=== PATIENT | male | born 1945 | race Caucasian/White ===

== ENCOUNTER 2019-05-23 06:18 | Inpatient (IN) | payer OTHER, BC ==
[~2019-05-23] VITALS: Ht 185.4 cm; Wt 133.8 kg
[2019-05-23] VITALS (19 sets, daily range): BP systolic 74–128; BP diastolic 41–84
--- NOTE | ~2019-05-23 | EEG ---
[facility] Kathy Guzman [employer] [place] [address] ELECTROENCEPHALOGRAM Name: CORRINA LIM Humera Room #: 204-P [facility] IN M.R.#: [id number] Admission: 05/23/19 Attend Phys: Junito Shirley MD Discharge: Date of : 43 Report #: [id number] THIS REPORT FOR: //name// CC: Junito Ritter DATE OF SERVICE: 05/28/2019 This patient is being evaluated for altered mental status. EEG was done by placing the electrode by standard 10-20 system of electrode placement. Both referential and sequential montages were used for recording. Background activity in this patient's EEG is about 8-9 Hz and 30 microvolts. Photic stimulation is unremarkable. It is intermixed with some theta range slowing. The patient went to sleep and that was associated with bilateral slowing and vertex sharp waves. Throughout the record, no active epileptiform activity was noticed. IMPRESSION: Except for some intermixed theta range slowing on both sides, this patient's EEG was unremarkable. Thank you very much for this referral. By: 1713 1730 Collin Cordoba MD /nt
--- NOTE | ~2019-05-23 | EEG ---
[facility] [place] [address] ELECTROENCEPHALOGRAM Name: CORRINA LIM Humera Room #: 238-P [facility] IN M.R.#: [id number] Admission: 05/23/19 Attend Phys: Pipo Buckley MD Discharge: Date of : 43 Report #: [id number] THIS REPORT FOR: //name// CC: Pipo Ritter DATE OF SERVICE: 05/23/2019 This patient is being evaluated for altered mental status. EEG was done by placing the electrode by standard 10-20 system of electrode placement. Both differential and sequential montages were used for recording. Background activity in this patient's EEG is about 8-9 Hz and 30 microvolt. Photic stimulation is unremarkable. The patient became drowsy and that is associated with bilateral slowing and vertex sharp waves. IMPRESSION: This patient's EEG is intermixed with some theta range slowing on both sides. That is a nonspecific finding, which can occur with encephalopathy, effect of psychotropic medication, dementia, etc. Clinical correlation is recommended. By: 1814 1841 Collin Cordoba MD /nt
[~2019-05-23 06:18] MED LIST: ALEVE220 MG PO; CARDIZEM CD240 MG PO; CELEXA 10 MG TA10 MG PO; CYCLOBENZAPRINE10 MG PO; ELIQUIS5 MG PO; ENOXAPARIN120 MG/0.1 SUBQ; GINKGO BILOBA30 MG PO; HYDROCODON-ACE1 EAC7 PO; HYDROCODONE-AP1 EAC6 PO; IBUPROFEN 200200 M1 PO; LISINOPRIL-HCT1 EAC2 PO; NIACIN50 MG PO; NIFEDIPINE ER30 M1 PO; SAW PALMETTO160 MG PO; ZINC50 M1 PO
[2019-05-23 08:19] LABS: HEMATOCRIT 52.2 % (42.0-52.0); HEMOGLOBIN 17.6 gm/dL (14.0-18.0); MCH 33.1 pg (26.0-34.0); MCHC 33.8 g/dL (28.0-37.0); MCV 97.9 fL (80.0-100.0); RBC 5.33 mil/uL (4.50-6.00); RDW 13.6 % (10.5-14.5); WBC 13.8 thou/uL (4.0-11.0)
--- NOTE | 2019-05-23 08:28 | EKG ---
[place] [address] [facility] [address] [place] [address] ELECTROCARDIOGRAM REPORT Name: CORRINA LIM Room #: 160-12 ADM IN M.R.#: [id number] Admission: 05/23/19 Attend Phys: Pipo Buckley MD Discharge: Date of : 43 Report #: [id number] THIS REPORT FOR: //name// [facility] Test Date: 2019-05-23 Test Time: 08:08:15 Pat Name: CORRINA LIM Department: Room: 160 12 Gender: M Disc Pad Grinder: Karl ANDERSON : 1945 Requested By: Junito Shirley Order Number: [id number] MD: Sunday Adamson Measurements Intervals [place] Rate: 59 P: [place]: QRS: -20 QRSD: 99 T: 180 QT: 488 QTc: 484 Interpretive Statements Junctional rhythm Inferior infarct, possibly acute Poor R wave progression Compared to ECG 06/02/2016 13:58:19 Junctional rhythm now present Inferior ST segment abnormality is new Ventricular premature complex(es) no longer present Electronically Signed On 05-23-2019 8:28:28 CDT by Sunday Adamson [email or web address] <ELECTRONICALLY SIGNED> By: Sunday Adamson MD, [facility] 05/23/19 0828 7 Sunday Adamson MD, [facility] /EPI
[2019-05-23 08:42] LABS: ALBUMIN 3.5 g/dL (3.4-5.0); CALCIUM 8.7 mg/dL (8.5-10.1); CREATININE 1.7 mg/dL (0.7-1.3); POTASSIUM 3.9 mmol/L (3.5-5.1); TOTAL BILIRUBIN 3.1 mg/dL (<0.1-1.0); TOTAL PROTEIN 5.8 g/dL (6.4-8.2)
[2019-05-23 08:44] LABS: TROPONIN-I 7.42 ng/mL (<0.06)
[2019-05-23 09:25] LABS: CHOLESTEROL 90 mg/dL (<200); HDL CHOLESTEROL 29 mg/dL (>40); LDL CHOLESTEROL 38 mg/dL (<100); TC:HDL 3.1 Ratio (Not establshd); TRIGLYCERIDE 117 mg/dL (<150); VLDL 23 mg/dL (<40)
--- NOTE | 2019-05-23 11:24 | NUR ---
RN GAVE REPORT TO CCU RN. THIS RN WENT INTO ROOM TO READY PATIENT FOR TRANSPORT WHEN PT WAS SPEAKING BUT NOT MAKING SENSE. PT HAD PREVOIUSLY HAD MOMENTS OF CONFUSION BUT WAS ANSWERING SPECIFIC QUESTIONS APROPRIATELY MD WAS MADE AWARE. PT MOVING ALL EXTERMITIES, NO FACIAL DROOP NOTED. APSHIA NOTED ONLY. PT TAKE ON MONITOR TO CT WITH RN X 2.
--- NOTE | 2019-05-23 11:48 | NUR ---
PT RETURNED FROM CT, PLACED ON NONBREATHER D.T. PT COLOR. PT PREVIOUS SPO2 DID NOT DROP BELOW 95% ON 4L O2 VIA NC WITH A GOOD WAVEFORM. PT MENTAL STATUS HAS IMPROVED WITH ADDITIONAL O2. AAOX3 WITH INTERMITTENT CONFUSION. ICU BED ORDERED.
--- NOTE | 2019-05-23 21:43 | NUR ---
SHIFT SUMMARY: ADMITTED TO ICU #238 FROM [facility] PER CART WITH DX: STEMI WITH STENT TO RCA. PT TO ICU RELATED TO EXPRESSIVE APHASIA AND ON 100% NONREBREATHER. INITIALLY PT ABLE TO STATE SOME WORDS WITH PURPOSE, HOWEVER OTHERS WITH EXPRESSIVE APHASIA. NIHSS-1 FOR EXPRESSIVE APHASIA, DENIES PAIN. JUNCTIONAL HEART RHYTHM, R GROIN SITE DRY/INTACT, NO BLEEDING, BRUISING OR HEMATOMA WITH MYNX CLOSURE DEVICE, 2X2 GUAZE AND OPSITE INTACT. INFORMED PT TO KEEP RIGHT LEG STRAIGHT, NOT MOVE LEG AROUND AND TO GUARD FEMORAL SITE. PULSES 1+ AND DENISE FEET COOL TO TOUCH WHICH PT STATES IS HIS NORM. PT RED IN FACE, 100%NONREBREATHER, RESP LABORED WHEN LAYING DOWN OR WITH ACTIVITY. PT HAD POOR SAO2 PLETH WHICH RESOLVED WHEN PLACED ON HIS FOREHEAD. SA02 AT 100% FOR LENGTHY TIME, RESP EVEN AND UNLABORED, DECREASED 02 TO 6L/NC WITH PT INITIALLY TOLERATING FOR LONG PERIOD. THEN NOTED HR SLOWING INTERMITTENTLY INTO 40'S, THEN RETURNING TO UPPER 50'S, BECOMING SHORT OF AIR AND FACE WITH INCREASED REDNESS. OBTAINED EKG NOTING CONFIRMING PT IN AFIB. REPLACED ON 100% NONREBREATHER WITH HR CONSISTENTLY RETURNING INTO UPPER 50'S WITH STABLE VS. CAROTID ULTRASOUND COMPLETED WITH ERRONEOUSLY HIGH BP DURING THAT TIME. DR. CASTAÑEDA- NEUROLOGY PRESENT TO SEE PT. HE UPDATED RN THAT HE SPOKE WITH DR. SANTA AND ORDERS WILL BE PENDING. SON AND DAUGHTER PRESENT, UPDATED ON PT STATUS. REPORT GIVEN TO ONCOMING RN. RN CALLED DR. SANTA, UPDATED ON PT STATUS. RECEIVED ORDERS AND CONSULTS. PT NOT PROGRESSING.
[2019-05-23 23:19] LABS: BE(vivo) -7.3 mmol/L (-2 to +3); PO2 99.6 mmHg (80.0-100.0); pH 7.401 (7.360-7.450); sO2 97.7 % (92.0-98.0)
[2019-05-23 23:20] LABS: PCO2 24.7 mmHg (35.0-45.0)
[2019-05-23 23:49] LABS: CALCIUM 8.2 mg/dL (8.5-10.1)
[2019-05-23 23:53] LABS: CREATININE 2.8 mg/dL (0.7-1.3); POTASSIUM 5.7 mmol/L (3.5-5.1)
[2019-05-24] VITALS (21 sets, daily range): BP systolic 107–185; BP diastolic 51–119
[2019-05-24 06:04] LABS: HEMATOCRIT 50.9 % (42.0-52.0); HEMOGLOBIN 17.1 gm/dL (14.0-18.0); MCH 33.3 pg (26.0-34.0); MCHC 33.7 g/dL (28.0-37.0); RBC 5.14 mil/uL (4.50-6.00); RDW 13.9 % (10.5-14.5); WBC 17.8 thou/uL (4.0-11.0)
[2019-05-24 07:00] LABS: CALCIUM 8.5 mg/dL (8.5-10.1)
[2019-05-24 07:06] LABS: POTASSIUM 4.5 mmol/L (3.5-5.1)
[2019-05-24 07:31] LABS: TSH 3.554 uIU/mL (0.358-3.740)
--- NOTE | 2019-05-24 08:22 | EKG ---
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 Cleaner: Jasmyne HURD : 1945 Requested By: Junito Shirley Order Number: [id number] MD: Sunday Adamson Measurements Intervals [place] Rate: 49 P: [place]: QRS: 40 QRSD: 250 T: 138 QT: 446 QTc: 403 Interpretive Statements Atrial fibrillation Poor R wave progression Inferior infarct, recent Compared to ECG 05/23/2019 08:08:15 atrial fibrillation has replaced junctional rhythm ST segment abnormality is less pronounced Electronically Signed On 05-24-2019 8:21:42 CDT by Sunday Adamson [email or web address] <ELECTRONICALLY SIGNED> By: Sunday Adamson MD, [facility] 05/24/19 0821 1621 1621 Sunday Adamson MD, [facility] /EPI
--- NOTE | 2019-05-24 08:54 | 2DMMODE ---
[facility] [place] [address] 2 D/M-MODE ECHOCARDIOGRAM Name: CORRINA LIM Room #: 238-P [facility] IN ..#: [id number] Admission: 05/23/19 Attend Phys: Pipo Buckley, Discharge: Date of : 43 Date of Service: 05/24/19 0854 Report #: [id number] THIS REPORT FOR: //name// APPROVED REPORT Study performed: 05/24/2019 08:09:25 EXAM: Comprehensive 2D, Doppler, and color-flow Echocardiogram Patient Location: ICU Room #: 238 Status: routine BSA: 2.56 HR: 67 bpm BP: 123/98 mmHg Rhythm: Atrial Fibrillation Other Information Study Quality: Adequate/heavy breathing/obesity Indications STEMI s/p PCI. Hx: Afib, HTN, HLP 2D Dimensions RVDd: 42.07 mm IVSd: 14.38 (7-11mm) LVOT Diam: 21.57 (18-24mm) LVDd: 47.88 mm PWd: 13.14 (7-11mm) Ascending Ao: 39.23 (22-36mm) LVDs: 32.89 (25-40mm) Aortic Root: 39.45 mm Volumes Left Atrial Volume (Systole) Single Plane 4CH: 108.00 mL Single Plane 2CH: 90.90 mL LA ESV Index: 42.00 mL/m2 Aortic Valve AoV Peak Volodymyr.: 0.94 m/s AO Peak Gr.: 3.53 mmHg LVOT Max P.62 mmHg LVOT Max V: 0.64 m/s LYNDA Vmax: 2.48 cm2 Mitral Valve MV Decel. Time: 133.27 ms MV E Max Volodymyr.: 1.05 m/s [facility] [place] [place] [address] 2 D/M-MODE ECHOCARDIOGRAM Name: CORRINA LIM Room #: 238-P [facility] IN ..#: [id number] Admission: 05/23/19 Attend Phys: Pipo Buckley, Discharge: Date of : 43 Date of Service: 05/24/19 0854 Report #: [id number] Pulmonary Valve PV Peak Volodymyr.: 0.57 m/s PV Peak Gr.: 1.29 mmHg Tricuspid Valve TR Peak Volodymyr.: 2.35 m/s RAP Estimate: 15.00 mmHg TR Peak Gr.: 22.16 mmHg PA Pressure: 37.00 mmHg Left Ventricle The left ventricle is normal size. Mild concentric left ventricular hypertrophy. Left ventricular systolic function is normal. Possible hypokinesis base of the inferior wall. LVEF is 55%. This study is not technically sufficient to allow evaluation of the LV diastolic function due to atrial fibrillation. Right Ventricle Right ventricle is at the upper limits of normal. Right ventricle is hypokinetic. Atria Left atrium is moderately dilated. Right atrium is moderately dilated. Aortic Valve The aortic valve is normal in structure. No aortic regurgitation is present. There is no aortic valvular stenosis. Mitral Valve The mitral valve is normal in structure. Moderate mitral regurgitation. Tricuspid Valve The tricuspid valve is normal in structure. Mild tricuspid regurgitation. Estimated PAP is 35mmHg. Pulmonic Valve The pulmonary valve is normal in structure. Trace pulmonic regurgitation. Great Vessels Aortic root is mildly dilated. The ascending aorta is mildly dilated (3.9cm) IVC is dilated and collapses <50% with inspiration. Pericardium There is no pericardial effusion. [facility] [address] [place] [address] 2 D/M-MODE ECHOCARDIOGRAM Name: CORRINA LIM Humera Room #: 238-P [facility] IN .R.#: [id number] Admission: 05/23/19 Attend Phys: Pipo Buckley, Discharge: Date of : 43 Date of Service: 05/24/19 0854 Report #: [id number] <Conclusion> Technically difficult study Left ventricular systolic function is normal. Possible hypokinesis base of the inferior wall. LVEF is 55%. Both atria are dilated. The aortic valve is normal in structure. No aortic regurgitation or stenosis The mitral valve is normal in structure. Moderate mitral regurgitation. Mild tricuspid regurgitation. Estimated pulmonary artery pressure of 35mmHg. The ascending aorta is mildly dilated (3.9cm) There is no pericardial effusion. <ELECTRONICALLY SIGNED> By: Sunday Adamson MD, [facility] 05/24/19 0854 3 3 Sunday Adamson MD, FAC /INF
--- NOTE | 2019-05-24 08:59 | NUR ---
SEE [facility] FOR ASSESSMENT AND VS. PT NEURO INTACT-FORGETFUL AT TIMES. MONITOR SHOWS AFIB WITH HR 60'S. DENIES CP. DOES BECOME DSYPNIC WITH MINIMAL EXERTION. HOME CPAP ON WITH SUPPLEMENTAL O2 AT 6L, TO KEEP SPO2 >92. RESP TX DONE. MAINT IV INFUSING. MINIMAL DIURESIS WITH LASIX, BUT PT DID HAVE 300+ IN DARK MANPREET URINE. SMALL BRONW STOOL-NO BLOOD NOTED. AM LABS ABNORMAL. CALLED TO DR SANTA.- ORDERS RECIEVED
[2019-05-24 11:57] LABS: % SATURATION 37 % (20-39); IRON 73 ug/dL (65-175); TIBC 197 ug/dL (250-450)
[2019-05-24 11:58] LABS: INR 1.2
--- NOTE | 2019-05-24 12:38 | NUR ---
met with patient. He admits from [facility] for emergent cath. Patient reports he lives in [place] in home with dtr. he reports dtr avail during day she works for him. 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 he has foot drop, and reports crawling up steps at home. He has no oxygen at home but has home CPAP machine. Left message with dtr to verify information. Therapy evals in process. patient currently on oxygen but does not at home.
[2019-05-24 13:59] LABS: HCO3 20.2 mmol/L (22.0-26.0); PCO2 35.1 mmHg (35.0-45.0); PO2 85.6 mmHg (80.0-100.0); pH 7.378 (7.360-7.450); sO2 96.4 % (92.0-98.0)
--- NOTE | 2019-05-24 15:57 | NUR ---
PATIENT ASSESSMENTS AND VITAL SIGNS DOCUMENTED. HE JOSE D NEEDS AT THIS TIME. ULTRASOUND IS IN HIS ROOM AT THIS TIME FOR LOWER EXTREMETY DOPPLERS. PATIENT STOOD UP TODAY AND AMBULATED TO TOILET WITH ASSISTANCE. HE IS ORIENTED AT THIS TIME AND HAS REMAINED CALM ALL DAY. HE HAS USED THE URINAL AND HAD A FEW INCONTINENCE EPISODES. HE DENIES PAIN. LACK OF POSITIVE DOPPLER INFORMED TO HIS PHYSICIANS FOR HIS LEFT PEDAL PULSE. PLAN OF CARE IS TO CONTINUE TO WATCH FOR TEST RESULTS, MONITOR PATIENT STATUS, INCLUDING ASSESSMENTS AND VITAL SIGNS, AND TO ASSESS PULSES. PATIENT PROGRESSING TOWARDS PLAN OF CARE.
--- NOTE | 2019-05-24 16:30 | EKG ---
[address] [address] ELECTROCARDIOGRAM REPORT Name: CORRINA LIM Room #: 238-P ADM IN M.R.#: [id number] Admission: 05/23/19 Attend Phys: Junito Shirley MD, Discharge: Date of : 43 Report #: [id number] THIS REPORT FOR: //name// [facility] Test Date: 2019-05-24 Test Time: 08:47:31 Pat Name: CORRINA LIM Department: Room: 238 P Gender: M Project Engineering Manager: SHAWNA : 1945 Requested By: Junito Shirley Order Number: [id number] MD: Anthony Meade Measurements Intervals [place] Rate: 65 P: [place]: QRS: -21 QRSD: 92 T: 148 QT: 413 QTc: 430 Interpretive Statements Atrial fibrillation Inferior infarct, old Lateral leads are also involved Compared to ECG 05/23/2019 16:21:59 Poor R-wave progression no longer present Myocardial infarct finding still present Electronically Signed On 05-24-2019 16:30:47 CDT by Anthony Meade [email or web address] <ELECTRONICALLY SIGNED> By: Anthony Meade MD 05/24/19 1630 0847 0847 Anthony Meade MD /JAMEE
--- NOTE | 2019-05-24 16:31 | HC ---
[facility] [place] [address] CONSULTATION Name: CORRINA LIM Humera Room #: 238-P ADM IN M.R.#: [id number] Admission: 05/23/19 Attend Phys: Junito Shirley MD, Discharge: Date of : 43 Report #: [id number] THIS REPORT FOR: //name// CC: Pipo Ritter DATE OF SERVICE: 05/23/2019 HISTORY OF PRESENT ILLNESS: This is a 73-year-old male patient who was evaluated by me for the possibility of TIA. I talked to the nurses looking after this patient and I discussed the patient with Dr. Shirley, the cosmetics counter manager. I talked to the patient's family in detail. The history I got by combining the information from all the above people is that this patient has longstanding atrial fibrillation. He was evaluated in the local Emergency Room where his hemoglobin was found to be only 7. As per notes in the computer, his creatinine was 0.86 and his BUN was 6. He was given only one unit of packed RBC and now his hemoglobin is 17.6. As I understand from the nurses, he underwent a stent today and then was found to have an episode where he was either confused or had word finding difficulty. According to the family, he is close to the baseline, but is not there yet fully. REVIEW OF SYSTEMS: Indicates that he drinks alcohol daily and he drinks several drinks of alcohol daily. He has never been told that his liver function test is abnormal, but it is abnormal here with a bilirubin of 3.1. I do not know what his baseline is. He has been on Eliquis, which has been held but talking to Dr. Shirley, it was held only yesterday and he took the last dose last night. He cannot tell me with certainty. I am also trying to determine with certainty when his last alcoholic drink was. He does not have any focal deficit. He does have an OH for which he had a stent put in. He does have a history of lumbar stenosis as a young person. He had a concussion once. He did not have these kind of symptoms before. He does take Celexa. He does have a history of sleep apnea, anxiety and depression. He had chiropractic maneuvers in the past. FAMILY HISTORY: Positive for aortic aneurysm. SOCIAL HISTORY: Positive for smoking and drinking alcohol. PHYSICAL EXAMINATION: Indicate that he is alert. He is responsive. He says that it is 10/2018, but then corrects himself to say it is May. During all this time, he does not appear to have any difficulty with word finding. He just appears to have delirium. He is able to name the president. He does tell me what 89-7 is, but when I say what is 82-7, he says 85, so his attention span appeared to be diminished. Cranial nerve examination 2-12 looks unremarkable. Neuromuscular examination is difficult because of recent catheterization, but position sense appeared to be intact and the stent looks mostly symmetrical. [address] [address] CONSULTATION Name: CORRINA LIM Humera Room #: 238-P [facility] IN M.R.#: [id number] Admission: 05/23/19 Attend Phys: Junito Shirley MD, Discharge: Date of : 43 Report #: [id number] There is no meningeal sign. Cardiac and respiratory examinations appear unremarkable. LABORATORY DATA: His white count is 13.8. His creatinine is abnormal. His bilirubin is 3.1. His AST is 204. IMPRESSION: It is a difficult case to evaluate because the labs does not make that much sense because his hemoglobin increased from 7.7-17.6 with by 1 unit of blood. The history is also not very clear in him. On my examination today, he appeared to have delirium, but he did not appear to be showing any marked word finding difficulty or difficulty understanding or other signs of aphasia. I discussed multiple things with the patient and the family. I discussed with him that I cannot fully exclude stroke, but these are not typical features of stroke. If he has a stroke, the treatment will be TPA, which should not be given to him because he is on Eliquis. He had a recent OH and the time of onset is not clear. His symptoms have also mostly resolved. The other treatment for stroke is thrombectomy, which is typically done if a thrombus can be demonstrated and many of the centers do it if the stroke scale is high enough to justify it. The problem in this patient is that it looks like his creatinine has risen from 0.86-1.7 and that is before his catheterization. His GFR was only 40. Therefore, I am reluctant to give him more dye by doing CT angiogram of the head and neck to rule out a low chance of stroke. Other option is doing and MRI and MRA on him. I talked to Dr. Shirley who is the cosmetics counter manager and put a stent in this patient today. He indicated the earliest he will feel comfortable allowing the MRI will be on Thursday and I will try to schedule that that day depending upon his condition at that time. The bigger thing which need to be addressed in this patient is to see if he is having or is going to have some alcohol withdrawal. That is a real possibility in him. His liver function is abnormal and we need to check his ammonia to see if he is developing any hepatic encephalopathy. I discussed that aspect with Dr. Shirley and he is going to start the patient on banana bag and consult other consultants. His white count is high, but is only trace high, but it does not look like there is any evidence for RAMP SUPERVISOR infection. I discussed all the options with the patient and the family in great detail and all of it was discussed with them. I am going to get an EEG done tonight. I am going to get a carotid Doppler done tonight. We will schedule MRI and MRA on Thursday. Dr. Shirley will arrange banana bags and evaluation of his liver function. His hemoglobin actually is more than 50 today and it will be desirable to give him some fluids to get some hemodilution in this patient. I discussed with the family that it is a difficult patient to evaluate and manage because of multiple problems going on as summarized above and there are [facility] [address] [place] [address] CONSULTATION Name: CORRINA LIM Humera Room #: 238-P [facility] IN M.R.#: [id number] Admission: 05/23/19 Attend Phys: Junito Shirley MD, Discharge: Date of : 43 Report #: [id number] advantages and disadvantages of following all the approach as summarized above and they understand it and they want to follow the approach, which is summarized above. Time spent about 50 minutes and about half of that in counseling and coordinating the patient's care. <ELECTRONICALLY SIGNED> By: Collin Cordoba MD 05/24/19 1631 1719 0039 Collin Cordoba MD /nt
--- NOTE | 2019-05-24 18:15 | NUR ---
NURSE CALLED DR. STODDARD. PATIENTS WORK OF BREATHING INCREASING. RESPIRATORY RATE IN THE 30BPM RANGE, HE EXPRESSED HE IS SHORT OF AIR AND IT FEELS LIKE BRONCHIAL ATTACK. OXYGENATION IS WITHIN ACCEPTABLE PARAMETERS. PATIENT IS FLUSHED. HE REFUSES HIS CPAP AT THIS TIME. HE SAID HE IS COUGHING UP STUFF FROM HIS LUNGS BUT NURSE HAS NOT OBSERVED THIS HE SWALLOWS IT.
[2019-05-24 18:41] LABS: BE(vivo) -5.6 mmol/L (-2 to +3); HCO3 18.8 mmol/L (22.0-26.0); PCO2 34.5 mmHg (35.0-45.0); PO2 85.1 mmHg (80.0-100.0); pH 7.355 (7.360-7.450); sO2 96.1 % (92.0-98.0)
[2019-05-24 19:10] LABS: IgG 409 mg/dL (700-1600)
--- NOTE | 2019-05-24 19:36 | NUR ---
NURSE TALKED WITH DR. STODDARD ON AN UPDATE ON PATIENS BREATHING. ABG RESULTS REVIEWED WITH PHYSICIAN WELL VITAL SIGNS. RR IS IN THE UPPER 30 BREATHS PER MINUTE RANGE. PATIENT FLUSHED, DIAPHORETIC, AN COUGHING. O2 SAT >95%. ORDER RECEIVED FOR LASIX TO BE GIVEN WELL ANOTHER BREATHING TREATMENT. PHYSICIAN DID NOT WANT LABS AT THIS TIME. INTAKE AND OUTPUT REVIEWED WITH PHYSICIAN. DR. STODDARD WOULD LIKE A CALL BACK ONE HOUR AFTER GIVING THE LASIX. THIS AND A FULL REPORT GIVEN TO THE PLASTIC MACHINE OPERATOR RN FOR CONTINUATION OF CARE. NURSE ALSO UPDATED THE FLOATMAN ABOUT THE DOPPLER RESULTS. NO NEW ORDERS AT THIS TIME.
[2019-05-25] VITALS (24 sets, daily range): BP systolic 99–160; BP diastolic 52–104
[2019-05-25 00:08] LABS: GLYCOHEMOGLOBIN (HGB A1C) 6.3 % (4.8-5.6)
--- NOTE | 2019-05-25 05:40 | NUR ---
RECEIVED REPORT FROM SATHYA WADSWORTH AND ASSUMED PATIENT CARE AT 1900. UPON ARRIVAL, PATIENT WAS VERY TACHYPNIC AND IN DISTRESS. GAVE IV LASIX ORDERED AND PLACED A ROPER CATHETER. ADDITIONALLY GAVE PATIENT SOME ATIVAN. PATIENT BECAME MUCH CALMER AND BEGAN BREATHING BETTER ONCE THE LASIX WAS GIVEN. IMMEDIATELY AFTER PLACING CATHETER, 1000 ML OF CLEAR, YELLOW URINE WAS RETURNED. PATIENT ALSO HAD INCREASED BP AND HR SO THIS RN NOTIFIED CARDIOLOGY TO SEE IF I COULD RESUME HIS HOME CARDIZEM. ONE-TIME DOSE GIVEN. PATIENT HAD A RESTFUL NIGHT AND NO ACUTE EVENTS OCCURRED. HOURLY ROUNDING COMPLETED AND ASSESSMENTS CHARTED. PATIENT IS PROGRESSING TOWARD GOAL.
[2019-05-25 05:50] LABS: ABSOLUTE NEUTROPHILS 16.4 thou/uL (1.4-8.2); BASOPHILS 0.2 % (0.0-2.0); EOSINOPHILS 0.1 % (0.0-3.0); HEMATOCRIT 44.8 % (42.0-52.0); HEMOGLOBIN 15.3 gm/dL (14.0-18.0); LYMPHOCYTES 1.7 % (24.0-44.0); MCH 33.2 pg (26.0-34.0); MCHC 34.1 g/dL (28.0-37.0); MCV 97.4 fL (80.0-100.0); MONOCYTES 4.5 % (1.0-8.0); PLATELET COUNT 100 thou/uL (150-400); POLYS 93.5 % (36.0-66.0); RDW 13.4 % (10.5-14.5); WBC 17.5 thou/uL (4.0-11.0)
[2019-05-25 06:04] LABS: ALBUMIN 3.1 g/dL (3.4-5.0); CALCIUM 8.1 mg/dL (8.5-10.1); CREATININE 1.9 mg/dL (0.7-1.3); PHOSPHORUS 3.9 mg/dL (2.5-4.9); POTASSIUM 4.3 mmol/L (3.5-5.1)
[2019-05-25 07:12] LABS: HAV IgM AB (ANTI-HAV IgM) Negative (Negative); HEPATITIS B SURFACE AG Negative (Negative); HEPATITIS C VIRUS AB <0.1 (0.0-0.9)
--- NOTE | 2019-05-25 11:12 | HC ---
[facility] [place] [address] CONSULTATION Name: CORRINA LIM Room #: 238-P [facility] IN M.R.#: [id number] Admission: 05/23/19 Attend Phys: Junito Shirley MD, Discharge: Date of : 43 Report #: [id number] THIS REPORT FOR: //name// CC: Junito Ritter DATE OF SERVICE: 05/23/2019 NEPHROLOGY CONSULTATION REASON FOR CONSULTATION: Acute kidney injury. HISTORY OF PRESENT ILLNESS: A 73-year-old gentleman with chronic atrial fib, developed chest pressure and pain, shortness of air, was found to have an acute non-ST elevated MD, was taken to the tender labor, had a RCA stent placed, 300 mL of Visipaque contrast was used. Creatinine was 1.7 prior to the procedure. Urine output has been decreased. Creatinine up to 3 today. PAST MEDICAL HISTORY: Atrial fibrillation as mentioned, previous back surgeries x 2 with foot drop, previous hernia surgery. HOME MEDICATIONS: Including Eliquis 5 mg b.i.d., lisinopril/hydrochlorothiazide 20/25, Celexa 10 mg daily, niacin p.r.n., nonsteroidals, diltiazem 240 mg daily. REVIEW OF SYSTEMS: GENERAL: He had been feeling reasonably well. EYES: He has got no trouble with his vision. ENT: Hearing okay, swallow is okay. No mouth sores. ENDOCRINE: Does have apparently some borderline diabetes. RESPIRATORY: Currently a bit short winded. CARDIAC: He had chest pain and a heart attack. GASTROINTESTINAL: No nausea, vomiting, diarrhea. He does have occasional dark black stools. GENITOURINARY: Does have some nocturia, but a good stream. No hematuria or stones. NEUROLOGIC: Apparently had some confusion after the procedure yesterday back to normal there. MUSCULOSKELETAL: He has got foot drop on the left. FAMILY HISTORY: Positive for mother had aortic aneurysm and father had a heart attack. Sister from lung cancer. SOCIAL HISTORY: He is a current smoker and drinks few alcoholic drinks every day. PHYSICAL EXAMINATION: [facility] [address] [place] [address] CONSULTATION Name: CORRINA LIM Humera Room #: 238-P [facility] IN M.R.#: [id number] Admission: 05/23/19 Attend Phys: Junito Shirley MD, Discharge: Date of : 43 Report #: [id number] GENERAL: Awake and alert. Nasal cannula oxygen. SKIN: Unremarkable. SKELETAL: Somewhat overweight. HEENT: Extraocular movements are full. No scleral icterus. Hearing and vision intact. Mucous membranes moist. Tongue, buccal mucosa benign. NECK: Supple. CHEST: Shows diminished breath sounds and coarse breath sounds. HEART: Irregular. ABDOMEN: Soft and nontender. EXTREMITIES: 1+ peripheral edema. LABORATORY DATA: Hemoglobin reportedly was 7.7 prior to the catheterization, but is now 17.1. I believe he only got 1 unit of packed cells, so that is a little confusing. The creatinine was 1.7, is up to 3; potassium is 4.5. Chest x-ray is pending. ASSESSMENT: 1. Acute kidney injury. He received lots of dye, has acute kidney injury, may well require dialysis. We will watch him closely in the ICU. This appears to be just a bit volume overloaded at the current time. Chest x-ray pending. 2. Status post non-ST elevation myocardial infarction with emergent stent placement. 3. Cigarette smoking. 4. Current daily drinker. 5. Diabetes mellitus. 6. History of hypertension. 7. Chronic atrial fibrillation, on Eliquis. DICTATION ENDS HERE <ELECTRONICALLY SIGNED> By: Junito Almodovar MD 05/25/19 1112 0954 [id number] Junito Almodovar MD /nt
--- NOTE | 2019-05-25 12:14 | NUR ---
PT TOOK CPAP OFF UPON AWAKENING THIS AM. REPOSITIONED PT IN BED/CHAIR POSITION. REMAINS RESTLESS, BEADS OF SWEAT ON FOREHEAD, MODERATELY ANXIOUS, HAVING ANXIETY, ATIVAN IV MG GIVEN WITH RELIEF OF SYMPTOMS. HE DOZED OFF. WHILE IN BED/CHAIR POSITION NO EVIDENCE OF SLEEP APNEA, WITH REST SA02 VERY SLOWLY RISING FROM 91-95%. AFIB, WHEEZING, LASIX IV GIVEN.
[2019-05-25 12:27] LABS: DIRECT BILIRUBIN 0.7 mg/dL (<0.1-0.3); TOTAL BILIRUBIN 2.3 mg/dL (<0.1-1.0)
[2019-05-25 13:42] LABS: URINE BLOOD 3+ (Negative); URINE CLARITY CLOUDY; URINE COLOR YELLOW; URINE GLUCOSE-RANDOM* NEGATIVE (Negative); URINE KETONES NEGATIVE (Negative); URINE LEUKOCYTES 2+ (Negative); URINE NITRITE NEGATIVE (Negative); URINE PROTEIN (DIPSTICK) TRACE (Negative); URINE UROBILINOGEN 0.2 E.U./dl (0.2-1.0)
[2019-05-25 13:43] LABS: ICTOTEST (BILI CONFIRMATORY) Negative (Negative); URINE BILIRUBIN NEGATIVE (Negative)
[2019-05-25 14:02] LABS: SQUAMOUS 0-3 Few /LPF (0-3); URINE RBC >20 Many /HPF (0-2)
[2019-05-25 14:03] LABS: CRYSTALS None Seen /LPF (None Seen); HYALINE CASTS 0-3 Few /LPF (None Seen); MUCUS 0-3 Light strn/LPF (None Seen)
[2019-05-25 14:04] LABS: WBC CLUMPS Few (None Seen)
[2019-05-25 14:06] LABS: ANA INTERPRETATION Negative (Negative)
--- NOTE | 2019-05-25 17:35 | NUR ---
SHIFT SUMMARY: PT RESTING INTERMITTENTLY IN AFTERNOON, WHEN AWAKE RED IN FACE, GRUNTING, SHORT OF AIR WITH ACTIVITY HOWEVER HE DENIES BEING SHORT OF AIR, ANY CARDIAC SIGNS/SYMPTOMS OR HAVING ANY SYMPTOMS OF ALCOHOL WITHDRAW. AFIB, 4L/NC, SHORT OF AIR WHEN EATING, ADEQUATE URINE OUTPUT PER ROPER. FAMILY PRESENT TODAY, UPDATED ON PT CONDITION.
[2019-05-26] VITALS (23 sets, daily range): BP systolic 119–152; BP diastolic 60–117
--- NOTE | 2019-05-26 05:32 | NUR ---
RECEIVED REPORT FROM SATHYA TRAVIS AND ASSUMED PATIENT CARE AT 1900. PATIENT IS AAOX4 AND NOTED TO BE A-FIB ON THE MONITOR AND ON 4 L NC. PATIENT REMAINED CALM THROUGHOUT THIS SHIFT AND NO SIGNS OF ALCOHOL WITHDRAWAL WERE NOTED. VS REMAINED STABLE AND NO ACUTE EVENTS OCCURRED DURING THIS SHIFT.
[2019-05-26 06:35] LABS: HEMATOCRIT 48.5 % (42.0-52.0); HEMOGLOBIN 16.5 gm/dL (14.0-18.0); MCH 33.2 pg (26.0-34.0); MCV 97.6 fL (80.0-100.0); PLATELET COUNT 121 thou/uL (150-400); RBC 4.97 mil/uL (4.50-6.00); RDW 13.8 % (10.5-14.5); WBC 23.3 thou/uL (4.0-11.0)
[2019-05-26 06:36] LABS: OBSERVED RETIC COUNT 1.97 % (0.6-2.6)
[2019-05-26 06:50] LABS: ALBUMIN 3.3 g/dL (3.4-5.0); CALCIUM 8.7 mg/dL (8.5-10.1); CREATININE 1.6 mg/dL (0.7-1.3); DIRECT BILIRUBIN 0.4 mg/dL (<0.1-0.3); PHOSPHORUS 3.3 mg/dL (2.5-4.9); POTASSIUM 3.8 mmol/L (3.5-5.1); TOTAL BILIRUBIN 1.5 mg/dL (<0.1-1.0); TOTAL PROTEIN 6.8 g/dL (6.4-8.2)
[2019-05-26 07:24] LABS: ABSOLUTE NEUTROPHILS 21.7 thou/uL (1.4-8.2)
--- NOTE | 2019-05-26 15:16 | NUR ---
Patient resides in home with dtr. He has flight of steps to enter home and flight to bedroom. Left message with dtr regarding possible skilled rehab. Discussed with patient and left skilled list. Patient reports when he goes "downstairs" will see how he does with therapy. requested 5N follow as well. 2 years ago.
--- NOTE | 2019-05-26 16:47 | NUR ---
PTIS ALERT AND ORIENTED X4. LUNGS ARE CLEAR TO DIMINSIHED. WHEZZY AT TIMES. GETS BREATHING TREATEMETNS. ABDOMEN IS ROUND BOWEL SOUNDS POSIVTIVE X4. ON HEART HEALTHY DIET. SITING UP IN THE CHAIR TODAY. WATCHING TV. AFIB ON THE AUTOMOTIVE UPHOLSTERER. VS STABLE. ON 4 LITERS NASAL CANULA WITH OXYGEN SATURATION AT 97 PERCENT. TRIED TO HAVE A BM BUT ONLY GAS NOTED. WITHDRAW ALCOHOL SCALE WAS A 1. SOME ANXIETY NOTED MILD. WILL CONTINUE TO ASSESS AND MONITOR PER NURSING.
--- NOTE | 2019-05-26 18:43 | CATHLAB ---
[facility] [address] [place] [address] INVASIVE PROCEDURE REPORT Name: CORRINA LIM Room #: 238-P [facility] IN .R.#: [id number] Admission: 05/23/19 Attend Phys: Junito Shirley, Discharge: Date of : 43 Date of Service: 05/26/19 1842 Report #: [id number] THIS REPORT FOR: //name// APPROVED REPORT Study performed: 05/23/2019 07:11:45 Patient Details Patient Status: In-Patient Room #: The patient is a 73 year-old male Event Personnel Junito Shirley Catering Sales Manager, Zoe Ross RN, Minerva Crowley Monitor, [employer] RTR Scrub, Juancho Swann RTR Scrub Procedures Performed Art Access - R femoral artery* Thad Access - R femoral vein 56832 Initial Mod Sed Same Phys/QHP Gr5y [id number] 29735 Mod Sed Same Phys/QHP Ea 910386 Left Heart Cath w/or w/o Coronaries [id number] [facility] Aortogram Abdominal Peripheral Angio 203622 STEPHANIE Revasc AMI Total/Sub Single RCA C9606 AMIREVSING Hemostasis w/ Mynx Indication STEMI Procedure Narrative The patient was brought emergently to the Cardiac Catheterization Laboratory and was prepped and draped in a sterile manner. The Right Groin^ was infiltrated with 1% Lidocaine subcutaneous anesthesia. A PINNACLE 6FR Sheath #[id number] sheath was inserted into the RFA^. Coronary angiography was performed using coronary diagnostic catheters. The right coronary system was accessed and visualized with a 3DRCLAUNCHER 6FR 3DRC #[id number] catheter. The left coronary system was accessed and visualized with a JL 4 catheter. The left ventricle was accessed and visualized with a Pigtail catheter. Left ventriculogram was performed in HIDALGO projection. An aortogram of the abdominal aorta was performed. Pre-demployment femoral angiogram was performed . Closure device was deployed with a 6 Fr Mynx. The patient tolerated the procedure well and there were no complications associated with the procedure. There was no hematoma. Intraoperative Conscious Sedation Sedation start time: 08:03 Case end Time: 09:15 [address] [place] [address] INVASIVE PROCEDURE REPORT Name: CORRINA LIM Room #: 238-P [facility]#: [id number] Admission: 05/23/19 Attend Phys: Junito Shirley, Discharge: Date of : 43 Date of Service: 05/26/19 1842 Report #: [id number] Fentanyl 25 mcg Versed 0.5 mg Fluoro Time: 14.38 minutes Dose: DAP 20112.00 cGycm2 4297 mGy Contrast Type and Amount: Visipaque 300 ml Hemodynamics The aortic pressure is 101/65 mmHg with a mean of 80 mmHg. The left ventricular pressure is 101/29 mmHg with a mean of mmHg. The left ventricular end diastolic pressure is 32 mmHg. PCI Technique Lesion Percutaneous coronary intervention was performed on the proximal right coronary artery. A LAUNCHER 6FR 3D #[id number] Guide Catheter was used to engage the ostium. A Luge Wire .014 x 182CM #[id number] Interventional Guidewire was used to cross the lesion. BALLOON DILATION A Balloon catheter Sprinter OTW 2.5 x 12 #[id number] was inserted and inflated up to 12.00atm for 25seconds. Additional Inflation: 16.00atm for 23seconds. STENT DEPLOYMENT A drug-eluting stent XIENCE ISAÍAS RX 2.75 X 15 #[id number] was inserted and inflated up to 18.00atm for 33seconds. POST STENT DEPLOYMENT BALLOON DILATION A Balloon catheter TREK NC OTW 3.0 X 12 #[id number] was inserted and inflated up to 22.00atm for 30seconds. Conclusion #1 PTCA stent emergent of the ostial RCA acute infarct occlusion 2.75 x 12 Isaías postdilated noncompliant balloon to 3.1 mm 0% residual JOSEY grade 3 flow #2 moderately disease and calcified left main giving rise to LAD and circumflex. #3 LAD moderately disease 50 and 60% diffuse irregularities proximal mid vessel calcified extends to the apex #4 there is a moderately diseased circumflex is really a 1 OM branch moderate in size with 56% proximal lesion #5 normal left ventricular size with inferior base mid inferior wall severely hypokinetic with moderate MR EF 45-50% range #6 abdominal aortogram hasn't evidence of a moderate iliac and infrarenal aortic aneurysm will need noninvasive imaging [facility] [place] [address] INVASIVE PROCEDURE REPORT Name: CORRINA LIM Room #: 238-P [facility] IN M.R.#: [id number] Admission: 05/23/19 Attend Phys: Junito Shirley, Discharge: Date of : 43 Date of Service: 05/26/191841 Report #: [id number] Recommendations and plan continue aggressive risk factor modification dual antiplatelet therapy. Patient will need aggressive diuresis. We'll transfer to ICU in guarded condition. <ELECTRONICALLY SIGNED> By: Junito Shirley MD, FACC 05/26/191841 41 41 Junito Shirley MD, FACC /INF
--- NOTE | 2019-05-26 18:58 | HC ---
[facility] [address] [place] [address] CONSULTATION Name: CORRINA LIM Room #: 238-P [facility] IN M.R.#: [id number] Admission: 05/23/19 Attend Phys: Junito Shirley MD, Discharge: Date of : 43 Report #: [id number] THIS REPORT FOR: //name// CC: Junito Ritter MD PULMONARY CONSULTATION PRIMARY CARE PHYSICIAN: Bartolome Ritter M.D. REFERRING PHYSICIAN: Junito Shirley M.D. REASON FOR CONSULTATION: Hypoxia. HISTORY OF PRESENT ILLNESS: The patient is a 73-year-old white male who was directly admitted to the hospital with shortness of breath and diaphoresis. The patient was found to have STEMI. He underwent cardiac catheterization. Following cardiac catheterization in the early afternoon, the patient developed hypoxia. For that reason, the patient has pulmonary consultation requested. In the interim following the cardiac catheterization, the patient also developed encephalopathy. Neurology was consulted. There are concerns for a possible small CVA. Overnight, the patient's oxygenation did improve somewhat from a nonrebreather to high flow O2. Saturation remained adequate. He did have some evidence of metabolic acidosis with respiratory compensation. Currently, he feels better. He is on CPAP. He has sleep apnea. He states that he is compliant with the use of CPAP. Otherwise, denies any recent febrile illness, sore throat, productive cough. Of note, the chest x-ray yesterday was clear. PAST MEDICAL HISTORY: Notable for atrial fibrillation, permanent, chronic anticoagulation; hypertension; sleep apnea, on CPAP; history of depression, anxiety; history of neck and shoulder pain. ALLERGIES: None to medications. HOME MEDICATIONS: Include Eliquis 5 mg p.o. b.i.d., lisinopril/hydrochlorothiazide 20/25 mg once a day, Celexa 10 mg once a day, niacin 2 tablets once a day, zinc once a day, ginkgo biloba supplements, saw palmetto supplements, Advil p.r.n., Naproxen p.r.n., diltiazem 240 mg once a day. [address] [address] CONSULTATION Name: CORRINA LIM Humera Room #: 238-P [facility] IN .R.#: [id number] Admission: 05/23/19 Attend Phys: Junito Shirley MD, Discharge: Date of : 43 Report #: [id number] FAMILY HISTORY: Aortic aneurysm in the mother. SOCIAL HISTORY: Does smoke about a pack a day. He drinks alcohol socially. REVIEW OF SYSTEMS: As mentioned above, otherwise 10-point system review is negative. PHYSICAL EXAMINATION: GENERAL: He is awake, alert, in mild distress due to dyspnea. VITAL SIGNS: Temperature is 98 degrees Fahrenheit, pulse is 67, respiratory rate is 24, blood pressure 160/59 mmHg, saturation 97%. HEENT: Normocephalic, atraumatic. NECK: Supple without lymphadenopathy or thyromegaly. CHEST: Breath sounds are good without any rales or wheezes. CARDIOVASCULAR: Normal S1, S2. There are no murmurs or gallop. There is no JVD, no carotid bruit. Pulses are 2+/4+ bilaterally. ABDOMEN: Soft, nontender, no organomegaly or masses felt. GENITOURINARY: Deferred. RECTAL: Deferred. EXTREMITIES: Cool to touch bilaterally both upper and lower, but no evidence of cyanosis. No edema noted or clubbing. NEUROLOGICAL: Grossly intact at present without focal weakness. He is alert and oriented. DIAGNOSTIC AND LABORATORY DATA: Chest x-ray mentioned above is clear. Echocardiogram performed earlier this morning shows ejection fraction approximately 55%, possible hypokinesis involving the inferior wall, moderate mitral regurgitation, pulmonary artery pressure measuring 35 mmHg, otherwise grossly unremarkable. CT head performed yesterday shows no acute intracranial abnormalities. Doppler ultrasound of the carotids shows ntoa-su-zctenkko bilateral atherosclerotic plaquing without hemodynamically compromised flow. Troponin 40.6. Sodium 141, potassium 3.9, chloride 102, CO2 is 27, BUN is 16, creatinine 1.7, this morning it is 3.0 with a bicarbonate of 22. Liver enzymes are moderately elevated. WBC 17,900, hemoglobin is upper limits of normal and platelets are normal. IMPRESSION: 1. Acute hypoxic respiratory failure in this 73-year-old white male. His chest x-ray is clear. He smokes. He has sleep apnea, on CPAP. Patient also developed some altered mental status post-procedure. Laboratory data also shows moderately elevated liver enzymes. Etiology of hypoxia is unclear given normal chest x-ray. May be related to encephalopathy along with component of chronic obstructive pulmonary disease, possible obesity hypoventilation syndrome. Pulmonary embolus felt to be less likely as the patient has been on anticoagulation. Given his history of tobacco use, cannot rule out underlying [facility] [address] [place] [address] CONSULTATION Name: CORRINA LIM Room #: 238-P [facility] IN .Karl.#: [id number] Admission: 05/23/19 Attend Phys: Junito Shirley MD, Discharge: Date of : 43 Report #: [id number] chronic obstructive pulmonary disease. 2. Obstructive sleep apne, on CPAP, appears to be compliant. 3. ST-elevation myocardial infarction, status post catheterization. 4. Atrial fibrillation, was bradycardic on admission, echocardiogram as mentioned above. 5. Hypertension. 6. Tobacco abuse. RECOMMENDATIONS: Although the patient is improved, though still requiring high FiO2 suggesting increased A-a gradient. As mentioned above, I do not think pulmonary embolus is likely as the patient had been on anticoagulation along with echocardiographic findings. We will obtain a leg Doppler ultrasound. Continue current care, wean O2 for saturation 90%, continue BiPAP during sleep and p.r.n. Empirically treat for possible COPD with bronchodilators. We will hold steroids for now. Thank you for this consultation. <ELECTRONICALLY SIGNED> By: Anil Gonsales MD 05/26/19 1858 1250 0121 Anil Gonsales MD /nt
--- NOTE | 2019-05-26 21:55 | HC ---
[facility] [address] [place] [address] CONSULTATION Name: CORRINA LIM Humera Room #: 238-P [facility] IN .R.#: [id number] Admission: 05/23/19 Attend Phys: Junito Shirley MD, Discharge: Date of : 43 Report #: [id number] THIS REPORT FOR: //name// CC: Junito Ritter DATE OF SERVICE: 05/24/2019 INFECTIOUS DISEASE CONSULTATION REASON FOR CONSULTATION: I was asked to evaluate the patient concerning leukocytosis in the setting of acute myocardial infarction and stenting. HISTORY OF PRESENT ILLNESS: The patient is a 73-year-old male admitted in transfer from outside hospital with acute MN. He underwent cardiac catheterization and stenting. He subsequently developed encephalopathy and more shortness of breath. He has had oxygen requirements up to 3 L. Mental status has tended to fluctuate some. No gross aspiration identified. He has had cough with intermittent sputum production. He notes that this is a more recent issue. No pleuritic chest pain or hemoptysis. He does have occasional light-colored sputum production. His echocardiogram showed preserved EF. He does have moderate mitral regurgitation. He has had no nausea, vomiting or diarrhea. He was obese. He is a smoker of cigarettes. He drinks alcohol on a daily basis. Further workup has noted elevated liver function tests. Ultrasound showed evidence of fatty liver. 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 Placed on corticosteroids at admission. His white count initially 13,000, now up to 17,000. No fever, chills or sweats. REVIEW OF SYSTEMS: A 10-point review of systems was otherwise negative other than he currently has an indwelling Koenig catheter. He has a peripheral IV in place. He has peripheral vascular disease, which has been confirmed by arterial ultrasound. ALLERGIES: None known. MEDICATIONS: As noted on his MAR with no recent antibiotics. He is on corticosteroids. PAST MEDICAL HISTORY: Atrial fibrillation on anticoagulation, hypertension, obstructive sleep apnea, depression, anxiety, and osteoarthritis. FAMILY HISTORY: Noncontributory. SOCIAL HISTORY: Smoker of cigarettes, drinker of alcohol. Retired. No [facility] [address] [place] [address] CONSULTATION Name: CORRINA LIM Humera Room #: 238-P [facility] IN M.R.#: [id number] Admission: 05/23/19 Attend Phys: Junito Shirley MD, Discharge: Date of : 43 Report #: [id number] reported HIV risks. No tuberculosis exposure. PHYSICAL EXAMINATION: VITAL SIGNS: He is currently afebrile, heart rate 77, blood pressure 126/70, respiratory rate 25, is on 3 L of oxygen per nasal cannula. SKIN: Without rash. He was obese. No palpable adenopathy. HEENT: Eyes without scleral icterus. Mouth without mucositis. NECK: Supple, with no thyromegaly or mass. LUNGS: Coarse bilaterally with no consolidation. HEART: Regular with a 2/6 systolic murmur along the apex. ABDOMEN: Protuberant, nontender. No hepatosplenomegaly or mass. GENITOURINARY: External genitalia with indwelling Koenig catheter. No rash or mass identified. RECTAL: Not performed. EXTREMITIES: 1+ peripheral edema. Pulses were diminished in his feet. He was alert and cooperative. Cranial nerves intact. Strength in upper and lower extremities was normal. Sensation intact. LABORATORY STUDIES: Creatinine 1.9, AST 627, ALT 597. Alkaline phosphatase 62, bilirubin total 2.3, direct 0.7. Troponin 40. Hemoglobin 15, white count 17.5, 93% neutrophils, platelet count 100,000. ESR 3. IgG 409. Hepatitis A, B, C negative. Urinalysis: wbc's and bacteria seen. Oxygen at 4 L per nasal cannula, pO2 of 85, pCO2 of 34, pH 7.35. Chest x-ray: Congestive heart failure. Ultrasound of the peripheral arteries showed diffuse vascular disease, most predominant below the knee bilaterally. Ultrasound of the abdomen showed fatty liver change. No ascites reported. IMPRESSION: A 73-year-old with acute myocardial infarction, status post stenting procedure, now with congestive heart failure, encephalopathy, which has been fluctuating. Some of this may be related to DTs. Has leukocytosis, which I suspect more likely related to his MN and corticosteroids. Although he has a cough he has evidence of possible bronchitis. He has acute kidney injury, thrombocytopenia as well as evidence of cystitis. RECOMMENDATIONS: We will continue observation off antibiotics at this point. Taper corticosteroids. Repeat chest x-ray, screen for viral respiratory panel. We will check sputum culture, viral respiratory panel. Repeat urinalysis, urine culture. We will place on antibiotic therapy for bronchitis in the setting of acute MN. Adjust for his renal insufficiency. Taper corticosteroids and follow his white count as well as chest x-ray. <ELECTRONICALLY SIGNED> By: Alonzo Bourgeois MD 05/26/195 42 06 Alonzo Bourgeois MD /nt
[2019-05-27] VITALS (23 sets, daily range): BP systolic 112–175; BP diastolic 57–96
--- NOTE | 2019-05-27 05:29 | NUR ---
PATIENT ALERT AND ORIENTED X4, FORGETFUL AT TIMES. ON 4L NASAL CANNULA, HOME CPAP AT NIGHT. A-FIB ON HIDE DYER WITH PVC'S. TOLERATING FLUIDS. ROPER PATENT WITH ADEQUATE OUTBUT. UP WITH X2 ASSISTANCE AND GAIT BELT TO BEDSIDE COMMODE. BLOOD SUGAR MONITORED. PATIENT UPDATED ON THE PLAN OF CARE. NO SIGNS OF ACUTE DISTRESS NOTED AT THIS TIME. WILL CONTINUE TO MONITOR.
[2019-05-27 05:35] LABS: ALBUMIN 3.1 g/dL (3.4-5.0); DIRECT BILIRUBIN 0.2 mg/dL (<0.1-0.3); TOTAL BILIRUBIN 1.3 mg/dL (<0.1-1.0); TOTAL PROTEIN 6.1 g/dL (6.4-8.2)
[2019-05-27 05:48] LABS: ALBUMIN 3.1 g/dL (3.4-5.0); CALCIUM 8.3 mg/dL (8.5-10.1); CREATININE 1.2 mg/dL (0.7-1.3); PHOSPHORUS 3.5 mg/dL (2.5-4.9)
[2019-05-27 05:52] LABS: POTASSIUM 4.1 mmol/L (3.5-5.1)
[2019-05-27 05:56] LABS: HEMATOCRIT 48.1 % (42.0-52.0); HEMOGLOBIN 16.3 gm/dL (14.0-18.0); MCHC 33.8 g/dL (28.0-37.0); MCV 97.6 fL (80.0-100.0); RBC 4.93 mil/uL (4.50-6.00); RDW 13.7 % (10.5-14.5)
--- NOTE | 2019-05-27 14:26 | NUR ---
ON-GOING ASSESSMENT: CM REVIEWED CHART AND MET WITH PATIENT AT THE BEDSIDE. PT REPORTS HE IS FEELING MUCH BETTER. PT STATING HE IS NOT WANTING TO GO TO 5N AND HE IS WANTING TO RETURN HOME WHERE HE LIVES WITH HIS DAUGHTER. CM JUST SPOKE WITH PHYSICAL THERAPIS WHO JUST WALKED PATIENT AND REPORTED HE DID GREAT AND WALKED 300 FT. PT STATING HE WISHES TO RETURN HOME AND THEN DOES NOT WANT HOME HEALTH BUT WANTS TO RESUME THE OUTPATIENT THERAPY HE WAS DOING AT [facility]. HE REPORTS IT IS LESS THEN TWO BLOCK FROM WHERE HE LIVES. CM ATTEMPTED TO REACH PATIENTS DAUGHTER BUT NO ANSWER AT THIS TIME. PT IS TO LIKELY TRANSFER OUT OF THE ICU TODAY. PT DECLINING HH AND WANTING TO DO OUTPATIENT THERAPY.
--- NOTE | 2019-05-27 16:45 | NUR ---
PT UP AMBUALTING WITH PHYSICAL THERAPY DID GREAT JOB TODAY. USE THE GAIT BELT AND INSTRUCTED TO USE THE CALL LIGHT. ALERT AND OREIENTED X4 BUT FOREGETFULL AT TIMES. LUNGS ARE CLEAR TO DIMINISHED. ON 3 LITERS NASAL CANULA. OXYGEN SATURATION IS 96 PERCENT . VS STABLE. GROIN SITE IS RIGHT SIDE DRY AND INTACT. DENIES ANY PAIN. FAMILY AT BEDSIDE TODAY FOR SUPPORT. TOLERATING HEART HEALTHY DIET. CALL LIGHT WITHIN REACH IF NEEDS ASSISTANCE
--- NOTE | 2019-05-27 20:23 | NUR ---
ASSUMED CARE OF PT. AT 1900. PT. IS A&OX4, PLEASANT AND CALM. PT. TRANSFERRED TO ROOM 204 IN THE CCU AT 1999. CHART GIVEN TO MARI MCDONNELL, REPORT CALLED BY DAY NURSE. PT. TRANSFERRED WITH ALL BELONGINGS WITHOUT COMPLICATION.
--- NOTE | 2019-05-28 01:21 | NUR ---
PT ARRIVED TO CCU FROM ICU AT APPROXIMATELY 2019. PT ACCOMPANIED BY COMBUSTION ANALYST. PT A&OX4. DENIES ANY PAIN. PT SETTLED INTO ROOM AND CALL LIGHT PLACED WITHIN REACH. PM MEDS GIVEN. VSS. WILL CONTINUE TO MONITOR.
[2019-05-28 06:01] LABS: ABSOLUTE NEUTROPHILS 13.3 thou/uL (1.4-8.2); BASOPHILS 0.1 % (0.0-2.0); HEMATOCRIT 49.2 % (42.0-52.0); HEMOGLOBIN 16.7 gm/dL (14.0-18.0); LYMPHOCYTES 2.5 % (24.0-44.0); MCH 33.3 pg (26.0-34.0); MONOCYTES 7.1 % (1.0-8.0); PLATELET COUNT 116 thou/uL (150-400); POLYS 90.3 % (36.0-66.0); RBC 5.02 mil/uL (4.50-6.00); RDW 13.7 % (10.5-14.5); WBC 14.7 thou/uL (4.0-11.0)
[2019-05-28 06:25] LABS: ALBUMIN 3.1 g/dL (3.4-5.0); CALCIUM 8.5 mg/dL (8.5-10.1); CREATININE 1.2 mg/dL (0.7-1.3); POTASSIUM 3.3 mmol/L (3.5-5.1)
[2019-05-28 06:30] LABS: ALBUMIN 3.2 g/dL (3.4-5.0); DIRECT BILIRUBIN 0.4 mg/dL (<0.1-0.3); TOTAL BILIRUBIN 1.3 mg/dL (<0.1-1.0)
[2019-05-28 07:40] VITALS: BP 1142/77
[2019-05-28 11:40] VITALS: BP 146/75
--- NOTE | 2019-05-28 12:46 | NUR ---
AAOX4. CALM, COOPERATIVE. ANTICIPATING DISCHARGE TOMORROW. STILL ON O2 PER PROTOCOL; DENIES HOME O2. ELEVATED BG TREATED PER METFORMIN AND SLIDING SCALE. AFIB PERSISTS PER TELE. HOURLY ROUNDING, WILL CONTINUE TO MONITOR.
[2019-05-28 15:40] VITALS: BP 135/73
[2019-05-28 20:15] VITALS: BP 95/57
[2019-05-28 20:21] VITALS: BP 95/57
[2019-05-29 04:00] VITALS: BP 143/95
--- NOTE | 2019-05-29 06:11 | NUR ---
pt resting quietly with cpap last evening w/o any O2 and continous sat monitor readings in the mid 90's thru the noc, vss, no c/o pain, pt hoping to go home today, will con't to monitor per ppoc.
[2019-05-29 06:21] LABS: ALBUMIN 3.1 g/dL (3.4-5.0); CALCIUM 8.2 mg/dL (8.5-10.1); CREATININE 1.3 mg/dL (0.7-1.3); PHOSPHORUS 3.6 mg/dL (2.5-4.9); POTASSIUM 4.1 mmol/L (3.5-5.1)
[2019-05-29 08:00] VITALS: BP 115/62
[2019-05-29] MEDS ORDERED: BYSTOLIC 5 MG5 M1 PO (08:46)
[2019-05-29] MEDS ORDERED: POTASSIUM20 PO (08:46)
[2019-05-29] MEDS ORDERED: COZAAR100 MG PO (08:46)
[2019-05-29] MEDS ORDERED: LIPITOR40 MG PO (08:46)
[2019-05-29] MEDS ORDERED: DEMADEX20 MG PO (08:46)
[2019-05-29] MEDS ORDERED: EFFIENT10 MG PO (08:46)
[2019-05-29 11:40] VITALS: BP 143/95
[2019-05-29 12:00] VITALS: BP 117/50
[2019-05-30 10:10] LABS: CERULOPLASMIN 21.4 mg/dL (16.0-31.0)
[2019-05-30 21:05] LABS: ADENOVIRUS Negative (Negative); INFLUENZA A Negative (Negative); INFLUENZA B Negative (Negative); METAPNEUMOVIRUS Negative (Negative); PARAINFLUENZA 1 Negative (Negative); PARAINFLUENZA 2 Negative (Negative); PARAINFLUENZA 3 Negative (Negative); RHINOVIRUS Negative (Negative); RSV A Negative (Negative); RSV B Negative (Negative)
[2019-05-31 08:12] LABS: GLOBULIN TOTAL 2.8 g/dL (2.2-3.9); M-SPIKE Not Observed g/dL (Not Observed)
== END 2019-05-29 13:29 | disposition home or self-care (01) | DRG 246 ==
LOC: 2N 06:18 → ICU 07:58 → TBACV 07:58 → ICU 12:47 → 2N 05-27 20:20
PROVIDERS: Hospitalist; Internal Medicine; Internal Medicine Gastroenterology; Internal Medicine Hematology & Oncology; Internal Medicine Nephrology; Internal Medicine Pulmonary Disease; Nurse Practitioner; Nurse Practitioner Adult Health; Psychiatry & Neurology Neuromuscular Medicine; Specialist; ADMIT Internal Medicine Cardiovascular Disease
PROC: B41FYZZ Fluoroscopy of Right Lower Extremity Arteries using Other Contrast (ICD-10-PCS; principal; 2019-05-23)
PROC: B211YZZ Fluoroscopy of Multiple Coronary Arteries using Other Contrast (ICD-10-PCS; principal; 2019-05-23)
PROC: 4A023N7 Measurement of Cardiac Sampling and Pressure, Left Heart, Percutaneous Approach (ICD-10-PCS; principal; 2019-05-23)
PROC: B410YZZ Fluoroscopy of Abdominal Aorta using Other Contrast (ICD-10-PCS; principal; 2019-05-23)
PROC: B215YZZ Fluoroscopy of Left Heart using Other Contrast (ICD-10-PCS; principal; 2019-05-23)
PROC: 027034Z Dilation of Coronary Artery, One Artery with Drug-eluting Intraluminal Device, Percutaneous Approach (ICD-10-PCS; principal; 2019-05-23)
DX: I21.3 ST elevation (STEMI) myocardial infarction of unspecified site (principal); J96.01 Acute respiratory failure with hypoxia; N17.9 Acute kidney failure, unspecified; G93.40 Encephalopathy, unspecified; J98.11 Atelectasis; I48.92 Unspecified atrial flutter; I13.0 Hypertensive heart and chronic kidney disease with heart failure and stage 1 through stage 4 chronic kidney disease, or unspecified chronic kidney disease; J44.0 Chronic obstructive pulmonary disease with (acute) lower respiratory infection; F17.210 Nicotine dependence, cigarettes, uncomplicated; I48.2 Chronic atrial fibrillation; F32.9 Major depressive disorder, single episode, unspecified; F41.9 Anxiety disorder, unspecified; G47.33 Obstructive sleep apnea (adult) (pediatric); M19.90 Unspecified osteoarthritis, unspecified site; I50.9 Heart failure, unspecified; D69.6 Thrombocytopenia, unspecified; N30.90 Cystitis, unspecified without hematuria; D64.9 Anemia, unspecified; F10.10 Alcohol abuse, uncomplicated; I65.29 Occlusion and stenosis of unspecified carotid artery; N18.9 Chronic kidney disease, unspecified; E78.5 Hyperlipidemia, unspecified; I08.1 Rheumatic disorders of both mitral and tricuspid valves; I25.10 Atherosclerotic heart disease of native coronary artery without angina pectoris; M48.061 Spinal stenosis, lumbar region without neurogenic claudication; I73.9 Peripheral vascular disease, unspecified; E87.70 Fluid overload, unspecified; R41.0 Disorientation, unspecified; K76.0 Fatty (change of) liver, not elsewhere classified; I77.1 Stricture of artery; K70.10 Alcoholic hepatitis without ascites; E66.9 Obesity, unspecified; Z71.6 Tobacco abuse counseling; Z95.5 Presence of coronary angioplasty implant and graft; Z82.49 Family history of ischemic heart disease and other diseases of the circulatory system; Z80.1 Family history of malignant neoplasm of trachea, bronchus and lung; I25.2 Old myocardial infarction; Z79.01 Long term (current) use of anticoagulants; Z79.82 Long term (current) use of aspirin; Z79.899 Other long term (current) drug therapy; Z86.010 Personal history of colon polyps; Z68.38 Body mass index [BMI] 38.0-38.9, adult
CPT/HCPCS: 10078; 10081

== ENCOUNTER → 2019-12-08 | Outpatient (CLI) | payer OTHER, BC ==
[~2019-12-08] MED LIST changes: +BYSTOLIC 5 MG5 M1 PO; +COZAAR100 MG PO; +DEMADEX20 MG PO; +EFFIENT10 MG PO; +LIPITOR40 MG PO; +POTASSIUM20 PO
== END ==
LOC: SJCVCIMAG 11-09 14:28
DX: I71.4 Abdominal aortic aneurysm, without rupture (principal); I73.9 Peripheral vascular disease, unspecified; I48.21 Permanent atrial fibrillation; L97.519 Non-pressure chronic ulcer of other part of right foot with unspecified severity; I10 Essential (primary) hypertension; E11.9 Type 2 diabetes mellitus without complications; E78.00 Pure hypercholesterolemia, unspecified; Z90.89 Acquired absence of other organs; Z79.899 Other long term (current) drug therapy

== ENCOUNTER → 2019-12-26 | Outpatient (CLI) | payer OTHER, BC ==
[~2019-12-26] VITALS: Ht 185.4 cm; Wt 111.1 kg
[~2019-12-26] MED LIST changes: +BYSTOLIC10 MG PO; +CYMBALTA30 MG PO; +FLONASE 0.05%50 MCG NARES; +METFORMIN HCL500 MG PO; +POTASSIUM99 M1 PO; +TORSEMIDE20 MG PO
[2019-12-26 09:01] VITALS: BP 134/74
[2019-12-26 09:06] LABS: HEMATOCRIT 39.8 % (42.0-52.0); HEMOGLOBIN 13.4 gm/dL (14.0-18.0); MCH 30.6 pg (26.0-34.0); MCHC 33.5 g/dL (28.0-37.0); MCV 91.2 fL (80.0-100.0); RBC 4.37 mil/uL (4.50-6.00); RDW 17.4 % (10.5-14.5); WBC 8.2 thou/uL (4.0-11.0)
[2019-12-26 09:16] LABS: CALCIUM 9.5 mg/dL (8.5-10.1); CREATININE 1.3 mg/dL (0.7-1.3)
[2019-12-26 09:19] LABS: POTASSIUM 4.4 mmol/L (3.5-5.1)
--- NOTE | 2019-12-26 15:48 | EKG ---
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 Burrer: Bhupinder TARIQ : 1945 Requested By: Junito Shirley Order Number: [id number] MD: Sunday Adamson Measurements Intervals [place] Rate: 72 P: [place]: QRS: -27 QRSD: 101 T: -23 QT: 431 QTc: 472 Interpretive Statements Atrial fibrillation Inferior infarct, age indeterminate Compared to ECG 05/24/2019 08:47:31 No significant changes Electronically Signed On 12-26-2019 15:47:10 CDT by Sunday Adamson [email or web address] <ELECTRONICALLY SIGNED> By: Sunday Adamson MD, FAC 12/26/19 [id number] Sunday Adamson MD, [facility] /EPI
--- NOTE | 2019-12-26 17:26 | CATHLAB ---
[facility] [address] [place] [address] INVASIVE PROCEDURE REPORT Name: CORRINA LIM Room #: REG [facility]ON[facility] Perales.#: [id number] Admission: 12/26/19 Attend Phys: Jorge A Escobar MD Discharge: Date of : 43 Report #: [id number] THIS REPORT FOR: cc: FAM - Family physician unknown FAM - Family physician unknown Junito Shirley MD [facility] ~ APPROVED REPORT Study performed: 12/26/2019 11:49:45 Patient Details Patient Status: Out-Patient Room #: The patient is a 74 year-old male Event Personnel Junito Shirley Land Clearer, Sukhi Jacobo RN, Liset Mart RTR, HEEL PAINTER Monitor, Juana Hook Scrjose Procedures Performed Art Access - R femoral artery* Left Heart Cath w/or w/o Coronaries 2025126 [facility] Hemostasis w/ Mynx , 75000 Initial Mod Sed Same Phys/QHP Gr5y 203056 48821 Mod Sed Same Phys/QHP Ea 157401 Indication Positive stress test Procedure Narrative A SHEATH DESTINATION 6F X 45CM (508050) sheath was inserted into the RFA^. Coronary angiography was performed using coronary diagnostic catheters. The right coronary system was accessed and visualized with a 3DRC catheter. The left coronary system was accessed and visualized with a JL5 catheter. The left ventricle was accessed and visualized with a pigtail catheter. Left ventriculogram was performed in 30 degree projection. Closure device was deployed with a 6 Fr MYNX CONTROL 6F/7F L#[id number]. The patient tolerated the procedure well and there were no complications associated with the procedure. There was no hematoma. Intraoperative Conscious Sedation Sedation start time: 10:22 Case end Time: 1242 Fentanyl 200 mcg Versed 3 mg Conscious sedation is a combination of peripheral procedures and the [facility] [place] [address] [place] [address] INVASIVE PROCEDURE REPORT Name: CORRINA LIM Room #: REG [facility]#: [id number] Admission: 12/26/19 Attend Phys: Jorge A Escobar, Discharge: Date of : 43 Report #: [id number] left heart cath. Fluoro dose and time is a combination of peripheral procedures and the left heart cath. Contrast total is a combination of peripheral procedures and the left heart cath. Fluoro Time: 29.42 minutes Dose: DAP 85963.40 cGycm2 1858 mGy Contrast Type and Amount: Visipaque 188 ml Hemodynamics The aortic pressure is 174/102 mmHg with a mean of 120 mmHg. The left ventricular pressure is 168/9 mmHg with a mean of mmHg. The left ventricular end diastolic pressure is 25 mmHg. PCI Technique Lesion Percutaneous coronary intervention was performed on the Unspecified. Conclusion 1. Normal left jugular size and systolic function EF 55 to 60% with 1+ mitral regurgitation #2 left main moderately diseased and calcified giving rise to LAD and circumflex. #3 LAD is an eccentric proximal lesion and calcified 60 to 70% does not appear flow-limiting and moderate diffuse distal disease around the apex. #4 circumflex OM nondominant also with 40 and 50% proximal lesions in the calcified segment a small ramus branch with moderate disease #5 large dominant right coronary with proximal calcification and mild irregularities. This extends to the apex. Previously placed ostial stent is widely patent. Recommendations and plan: Continue aggressive risk factor modification. Will have follow-up stress testing in 6 to 12 months to further evaluate proximal LAD lesion. <ELECTRONICALLY SIGNED> By: Junito Shirley MD, FACC 12/26/19 172 23 23 Junito Shirley MD, FACC /INF
== END | disposition home or self-care (01) ==
LOC: CATH 08:13
PROVIDERS: Internal Medicine Cardiovascular Disease
DX: R94.39 Abnormal result of other cardiovascular function study (principal); I25.84 Coronary atherosclerosis due to calcified coronary lesion; I70.212 Atherosclerosis of native arteries of extremities with intermittent claudication, left leg; I70.1 Atherosclerosis of renal artery; I11.0 Hypertensive heart disease with heart failure; I50.9 Heart failure, unspecified; E11.9 Type 2 diabetes mellitus without complications; E78.00 Pure hypercholesterolemia, unspecified; I48.91 Unspecified atrial fibrillation; G47.30 Sleep apnea, unspecified; Z98.890 Other specified postprocedural states; Z79.899 Other long term (current) drug therapy; Z87.891 Personal history of nicotine dependence; Z79.01 Long term (current) use of anticoagulants

== ENCOUNTER → 2020-01-03 | Outpatient (CLI) | payer OTHER, BC | LOC: SJCVC 08:51 | PROVIDERS: ATTEND Nuclear Medicine Nuclear Cardiology | DX: I73.9 Peripheral vascular disease, unspecified (principal); I25.10 Atherosclerotic heart disease of native coronary artery without angina pectoris; I48.21 Permanent atrial fibrillation; I10 Essential (primary) hypertension; E78.00 Pure hypercholesterolemia, unspecified; E11.9 Type 2 diabetes mellitus without complications; Z79.899 Other long term (current) drug therapy; Z87.891 Personal history of nicotine dependence ==

== ENCOUNTER → 2020-04-23 | Outpatient (CLI) | payer OTHER, BC ==
[~2020-04-23] MED LIST changes: +ASA81BEC PO
== END ==
LOC: SJCVCIMAG 08:29
PROVIDERS: ATTEND Internal Medicine Cardiovascular Disease
DX: I65.23 Occlusion and stenosis of bilateral carotid arteries (principal); I48.21 Permanent atrial fibrillation; I73.9 Peripheral vascular disease, unspecified; E11.9 Type 2 diabetes mellitus without complications; I25.10 Atherosclerotic heart disease of native coronary artery without angina pectoris; I72.3 Aneurysm of iliac artery; I10 Essential (primary) hypertension; G47.33 Obstructive sleep apnea (adult) (pediatric); Z79.899 Other long term (current) drug therapy; Z87.891 Personal history of nicotine dependence

== ENCOUNTER → 2020-05-04 | Outpatient (CLI) | payer OTHER, BC ==
[~2020-05-04] VITALS: Ht 185.4 cm; Wt 119.7 kg
[2020-05-04 08:25] VITALS: BP 136/77
[2020-05-04 08:30] LABS: HEMATOCRIT 46.2 % (42.0-52.0); HEMOGLOBIN 15.6 gm/dL (14.0-18.0); MCH 32.3 pg (26.0-34.0); MCHC 33.6 g/dL (28.0-37.0); RBC 4.82 mil/uL (4.50-6.00); RDW 14.3 % (10.5-14.5); WBC 8.8 thou/uL (4.0-11.0)
[2020-05-04 08:38] LABS: CREATININE 1.6 mg/dL (0.7-1.3); POTASSIUM 3.8 mmol/L (3.5-5.1)
== END | disposition home or self-care (01) ==
LOC: CATH 07:22
PROVIDERS: ATTEND Nuclear Medicine Nuclear Cardiology
DX: I70.213 Atherosclerosis of native arteries of extremities with intermittent claudication, bilateral legs (principal); I70.1 Atherosclerosis of renal artery; M79.604 Pain in right leg; I11.0 Hypertensive heart disease with heart failure; I50.9 Heart failure, unspecified; I25.10 Atherosclerotic heart disease of native coronary artery without angina pectoris; E11.9 Type 2 diabetes mellitus without complications; I48.91 Unspecified atrial fibrillation; E78.5 Hyperlipidemia, unspecified; Z98.890 Other specified postprocedural states; Z79.899 Other long term (current) drug therapy; Z79.01 Long term (current) use of anticoagulants

== ENCOUNTER → 2020-08-07 | Outpatient (CLI) | payer OTHER, BC | LOC: SJCVCIMAG 09:10 | PROVIDERS: ATTEND Nuclear Medicine Nuclear Cardiology | DX: I70.201 Unspecified atherosclerosis of native arteries of extremities, right leg (principal); I72.3 Aneurysm of iliac artery; I77.9 Disorder of arteries and arterioles, unspecified; I25.10 Atherosclerotic heart disease of native coronary artery without angina pectoris; I48.21 Permanent atrial fibrillation; I10 Essential (primary) hypertension; E11.51 Type 2 diabetes mellitus with diabetic peripheral angiopathy without gangrene; E78.5 Hyperlipidemia, unspecified; Z95.828 Presence of other vascular implants and grafts; Z79.899 Other long term (current) drug therapy; Z87.891 Personal history of nicotine dependence ==

== ENCOUNTER → 2021-03-26 | Outpatient (CLI) | payer OTHER, BC | LOC: SJCVCIMAG 12:37 | PROVIDERS: ATTEND Nuclear Medicine Nuclear Cardiology | DX: R94.31 Abnormal electrocardiogram [ECG] [EKG] (principal); I25.10 Atherosclerotic heart disease of native coronary artery without angina pectoris; I48.21 Permanent atrial fibrillation; I65.23 Occlusion and stenosis of bilateral carotid arteries; I77.9 Disorder of arteries and arterioles, unspecified; I73.9 Peripheral vascular disease, unspecified; I10 Essential (primary) hypertension; E78.00 Pure hypercholesterolemia, unspecified; E11.9 Type 2 diabetes mellitus without complications; I48.91 Unspecified atrial fibrillation; Z79.899 Other long term (current) drug therapy; Z79.84 Long term (current) use of oral hypoglycemic drugs; Z87.891 Personal history of nicotine dependence; Z72.89 Other problems related to lifestyle ==

== ENCOUNTER → 2021-10-30 | Outpatient (CLI) | payer OTHER, BC | LOC: SJCVCIMAG 07:34 | PROVIDERS: ATTEND Nuclear Medicine Nuclear Cardiology | DX: I71.4 Abdominal aortic aneurysm, without rupture (principal); I49.3 Ventricular premature depolarization; I48.21 Permanent atrial fibrillation; I70.203 Unspecified atherosclerosis of native arteries of extremities, bilateral legs; R06.00 Dyspnea, unspecified; I25.10 Atherosclerotic heart disease of native coronary artery without angina pectoris; I77.9 Disorder of arteries and arterioles, unspecified; E11.9 Type 2 diabetes mellitus without complications; D68.59 Other primary thrombophilia; I65.23 Occlusion and stenosis of bilateral carotid arteries; E78.00 Pure hypercholesterolemia, unspecified; I72.3 Aneurysm of iliac artery; I10 Essential (primary) hypertension; I34.0 Nonrheumatic mitral (valve) insufficiency; M71.38 Other bursal cyst, other site; M47.816 Spondylosis without myelopathy or radiculopathy, lumbar region; M48.061 Spinal stenosis, lumbar region without neurogenic claudication; G47.30 Sleep apnea, unspecified; Z87.891 Personal history of nicotine dependence; Z72.89 Other problems related to lifestyle; Z79.84 Long term (current) use of oral hypoglycemic drugs; Z79.899 Other long term (current) drug therapy ==